=== PATIENT | female | born 1955 | race Caucasian/White ===

== ENCOUNTER 2016-12-12 14:46 | Emergency (ER) | payer BC ==
[~2016-12-12 14:46] MED LIST: AMLO2.5T PO; CITRTAB8 PO; DICL25 PO; DICL50 PO; LEFL20TA7 PO
[2016-12-12 14:49] VITALS: BP 133/91; PULSE 118; RESP 20; TEMP 102.1; O2SAT 96
[2016-12-12] MEDS ORDERED: SODIUM CHLOR 0.9% 1000 ML INJ 100 ML IV ONE (15:03)
[2016-12-12] MEDS ORDERED: SODIUM CHLOR 0.9% 1000 ML INJ 1,000 ML IV ONE ×2 (15:03)
[2016-12-12 15:13] VITALS: O2SAT 96
[2016-12-12] MEDS ORDERED: ACETAMINOPHEN 325 MG TAB PO ONE (15:15)
[2016-12-12] MEDS ORDERED: ONDANSETRON HCL 4 MG/2 ML VIAL IV PUSH ONE (15:30)
[2016-12-12 15:35] LABS: AUTOMATED NEUTROPHIL # 7.9 TH/MM3 (1.8-7.7); BASOPHIL # 0.5 TH/MM3 (0-0.2); BASOPHIL % 4.7 % (0.0-2.0); EOSINOPHIL % 0.1 % (0.0-4.0); HEMATOCRIT 36.2 % (35.0-46.0); HEMO FLAGS DIFF FINAL; LYMPH % 11.7 % (9.0-44.0); LYMPHOCYTE # 1.2 TH/MM3 (1.0-4.8); MEAN CELL VOLUME 88.6 FL (80.0-100.0); MEAN CORPUSCULAR HEMOGLOBIN 29.5 PG (27.0-34.0); MEAN CORPUSCULAR HGB CONC 33.3 % (32.0-36.0); MONO % 9.1 % (0.0-8.0); NEUT % 74.4 % (16.0-70.0); PLATELET COUNT 234 TH/MM3 (150-450); RED BLOOD COUNT 4.08 MIL/MM3 (4.00-5.30); RED CELL DISTRIBUTION WIDTH 12.1 % (11.6-17.2); WHITE BLOOD COUNT 10.6 TH/MM3 (4.0-11.0)
[2016-12-12 15:40] VITALS: BP 144/73; PULSE 114; RESP 20; O2SAT 99
[2016-12-12 15:44] LABS: CHLORIDE 100 MEQ/L (98-107); SODIUM (NA) 133 MEQ/L (136-145)
[2016-12-12] MEDS ORDERED: ZANT150T2 PO (15:47)
[2016-12-12] MEDS ORDERED: AMLO2.5T PO (15:47)
[2016-12-12] MEDS ORDERED: EMBRIL IM (15:47)
[2016-12-12] MEDS ORDERED: PROLEA SQ (15:47)
[2016-12-12] MEDS ORDERED: CETI-1 PO (15:47)
[2016-12-12] MEDS ORDERED: MONT10TA2 PO (15:47)
[2016-12-12] MEDS ORDERED: ATOR10TA15 PO (15:47)
[2016-12-12] MEDS ORDERED: CALC1TAB12 PO (15:47)
[2016-12-12] MEDS ORDERED: CARV6.25 PO (15:47)
[2016-12-12] MEDS ORDERED: LOSA100T PO (15:47)
--- NOTE | 2016-12-12 15:47 | PD ---
HPI . Flu Chief Complaint: Cold / Flu Symptoms Time Seen by Provider: 15:03 Travel History International Travel<30 days: No Contact w/Intl Traveler<30days: No Traveled to known affect area: No History of Present Illness HPI This patient presents to us with the chief complaint of flu, rule out sepsis. She states that her symptoms all started about 3 days ago with a sore throat. She has subsequently developed nasal congestion and chest congestion and fever. She is also having some nausea and vomiting. Symptoms have been getting progressively worse. She rates her throat pain as 7/10. She has not noted any modifying factors. She states that she went to see her PMD today who gave her a shot of Rocephin and sent her to an outpatient lab to have a flu swab done. The outpatient lab was unable to do the flu swab so she was subsequently seen at an urgent care center. Her flu test there was positive. Sometime in the interim, she has had a chest x-ray done at [facility]. She states that she was sent here from the urgent care center for rule out sepsis. She has not had a dose of Tylenol today. She does not yet have a prescription for Tamiflu. She states that her also has the flu and was seen at the urgent care center and given a prescription for Tamiflu. However, they were concerned that she was septic and sent her here. [facility] Past Medical History Diminished Hearing: No Hypertension: Yes Medical other: Yes (LEFT LAKHANI FRACTURE 5TH METATARSAL) Influenza Vaccination: Yes ?: Not Menopausal: Yes Past Surgical History Genitourinary Surgery: Yes (URETHRA PLASTY ) Tonsillectomy: Yes Other Surgery: Yes (BILATERAL BREAST IMPLANTS AND SINUS SURGERY ) Social History Alcohol Use: No Tobacco Use: Yes (03/29 TO 03/27 PPD) Substance Use: No Allergies-Medications (Allergen,Severity, Reaction): Coded Allergies: clarithromycin (Unverified Allergy, Severe, 12/12/16) codeine (Unverified Allergy, Severe, 12/12/16) cyclobenzaprine (Unverified Allergy, Severe, 12/12/16) povidone-iodine (Unverified Allergy, Severe, 12/12/16) ibuprofen (Verified Allergy, Intermediate, RASH, 12/12/16) latex (Verified Allergy, Intermediate, RASH, 12/12/16) amoxicillin (Verified Allergy, Unknown, TURNS TEETH BROWN, 12/12/16) clavulanic acid (Verified Allergy, Unknown, TURNS TEETH BROWN, 12/12/16) Uncoded Allergies: CIDEX (Allergy, Severe, 08/02/11) Reported Meds & Prescriptions Reported Meds & Active Scripts Active Zofran Odt (Ondansetron Odt) 4 Mg Tab 4 Mg SL Q6HR PRN Tamiflu (Oseltamivir Phosphate) 75 Mg Cap 75 Mg PO BID 5 Days Reported Doxycycline 40 Mg Cap 100 Mg PO BID Magnesium Citrate 100 Mg Tab 250 Mg PO BID PRN Probiotic (Saccharomyces Boulardii) 250 Mg Cap 250 Mg PO BID Calcium 500 +D (Calcium Carbonate-Cholecalciferol) 500-400 Mg-Unit Tab 1 Tab PO DAILY Zyrtec (Cetirizine HCl) 10 Mg Tablet 1 Tab PO HS Singulair (Montelukast Sodium) 10 Mg Tab 10 Mg PO DAILY [Prolea] Unknown Dose SQ 2X YEAR Atorvastatin (Atorvastatin Calcium) 10 Mg Tab 10 Mg PO EVERY OTHER DAY [Embril] 50 Mg IM SUNDAY Zantac (Ranitidine HCl) 150 Mg Tab 150 Mg PO BID Coreg (Carvedilol) 6.25 Mg Tab 6.25 Mg PO BID Losartan (Losartan Potassium) 100 Mg Tab 100 Mg PO DAILY Amlodipine (Amlodipine Besylate) 2.5 Mg Tab 2.5 Mg PO DAILY Review of Systems Except as stated in HPI: all other systems reviewed are Neg General / Constitutional: Positive: Fever, Chills Eyes: No: Drainage, Redness HENT: Positive: Sore Throat, Rhinitis, Congestion Respiratory: Positive: Cough Gastrointestinal: Positive: Nausea, Vomiting Physical Exam Narrative Vital Signs Date Time Temp Pulse Resp B/P (MAP) Pulse Ox O2 Delivery O2 Flow Rate FiO2 12/12/16 15:40 114 20 144/73 (96) 99 Room Air 12/12/16 15:13 96 Room Air 12/12/16 14:49 102.1 118 20 133/91 (105) 96 GENERAL: Patient is awake and alert and does not appear to be in any acute distress. SKIN: warm/dry. No rashes noted. HEAD: Normocephalic. Atraumatic. EYES: Pupils equal and round. No scleral icterus. No injection or drainage. ENT: No nasal bleeding or discharge. Mucous membranes pink and moist. NECK: Trachea midline. Full range of motion without pain. CARDIOVASCULAR: Sinus tachycardia. Heart sounds are normal. RESPIRATORY: No accessory muscle use. Clear to auscultation. Breath sounds equal bilaterally. GASTROINTESTINAL: Abdomen soft. Nontender. Bowel sounds present. Nondistended. MUSCULOSKELETAL: No obvious deformities. NEUROLOGICAL: Awake and alert. No obvious cranial nerve deficits. Motor grossly within normal limits. Normal speech. PSYCHIATRIC: Appropriate mood and affect; insight and judgment normal. Data Data Last Documented VS Vital Signs Date Time Temp Pulse Resp B/P (MAP) Pulse Ox O2 Delivery O2 Flow Rate FiO2 12/12/16 16:51 12/12/16 16:40 98.9 98 18 97 Room Air Orders Orders Complete Blood Count With Diff (12/12/16 15:03) Comprehensive Metabolic Panel (12/12/16 15:03) Lactic Acid Sepsis Protocol (12/12/16 15:03) Blood Culture (12/12/16 15:03) Ecg Monitoring (12/12/16 15:03) Iv Access Insert/Monitor (12/12/16 15:03) Oximetry (12/12/16 15:03) Sodium Chlor 0.9% 1000 Ml Inj (Ns 1000 M (12/12/16 15:03) Sodium Chlor 0.9% 1000 Ml Inj (Ns 1000 M (12/12/16 15:03) Sodium Chlor 0.9% 1000 Ml Inj (Ns 1000 M (12/12/16 15:03) Acetaminophen (Tylenol) (12/12/16 15:15) Ondansetron Inj (Zofran Inj) (12/12/16 15:30) Labs Laboratory Tests Test 12/12/16 15:22 12/12/16 15:28 White Blood Count 10.6 TH/MM3 Red Blood Count 4.08 MIL/MM3 Hemoglobin 12.1 GM/DL Hematocrit 36.2 % Mean Corpuscular Volume 88.6 FL Mean Corpuscular Hemoglobin 29.5 PG Mean Corpuscular Hemoglobin Concent 33.3 % Red Cell Distribution Width 12.1 % Platelet Count 234 TH/MM3 Mean Platelet Volume 8.9 FL Neutrophils (%) (Auto) 74.4 % Lymphocytes (%) (Auto) 11.7 % Monocytes (%) (Auto) 9.1 % Eosinophils (%) (Auto) 0.1 % Basophils (%) (Auto) 4.7 % Neutrophils # (Auto) 7.9 TH/MM3 Lymphocytes # (Auto) 1.2 TH/MM3 Monocytes # (Auto) 1.0 TH/MM3 Eosinophils # (Auto) 0.0 TH/MM3 Basophils # (Auto) 0.5 TH/MM3 CBC Comment DIFF FINAL Differential Comment Blood Urea Nitrogen 12 MG/DL Creatinine 1.10 MG/DL Random Glucose 124 MG/DL Total Protein 8.2 GM/DL Albumin 3.5 GM/DL Calcium Level 9.0 MG/DL Alkaline Phosphatase 97 U/L Aspartate Amino Transf (AST/SGOT) 27 U/L Alanine Aminotransferase (ALT/SGPT) 19 U/L Total Bilirubin 0.3 MG/DL Sodium Level 133 MEQ/L Potassium Level 4.0 MEQ/L Chloride Level 100 MEQ/L Carbon Dioxide Level 22.5 MEQ/L Anion Gap 11 MEQ/L Estimat Glomerular Filtration Rate 50 ML/MIN Lactic Acid Level 1.7 mmol/L MDM Medical Decision Making Medical Screen Exam Complete: Yes Emergency Medical Condition: Yes Differential Diagnosis Differential diagnosis of fever includes but is not limited to viral illness, strep throat, otitis media, pneumonia, sepsis, UTI Narrative Course This patient presents for rule out sepsis. She has already been diagnosed with flu today. She has not yet had Tylenol today and she has not yet been prescribed Tamiflu. CBC & BMP Diagram 12/12/16 15:22 Total Protein 8.2, Albumin 3.5, Calcium Level 9.0, Alkaline Phosphatase 97, Aspartate Amino Transf (AST/SGOT) 27, Alanine Aminotransferase (ALT/SGPT) 19, Total Bilirubin 0.3 Lactic acid is 1.7. This patient has the flu. She has a normal white blood count and a normal lactic acid level. She is stable for discharge and treatment as an outpatient. Sepsis Criteria SIRS Criteria (2 or more): Temp > 100.9 or < 96.8, Heart rate over 90 Sepsis Criteria (SIRS+source): Infect source susp/known Criteria Outcome: Meets sepsis criteria Diagnosis Primary Impression: Influenza Additional Impression: Sepsis Qualified Codes: A41.9 - Sepsis, unspecified organism Patient Instructions: General Instructions, H1N1 Influenza in Children (GEN) Additional Instructions: Drink lots of fluids. Tylenol and/or Advil as needed for fever. Medications as prescribed. Med/Other Pt SpecificInfo: Prescription(s) given Scripts Ondansetron Odt (Zofran Odt) 4 Mg Tab 4 MG SL Q6HR Y for Nausea/Vomiting, #30 TAB 0 Refills Prov: Denise Bailon MD 12/12/16 Oseltamivir (Tamiflu) 75 Mg Cap 75 MG PO BID for Mgmt Viral Infection for 5 Days, #10 CAP 0 Refills Prov: Denise Bailon MD 12/12/16 Disposition: 01 DISCHARGE HOME Condition: Stable Denise Bailon MD Dec 12, 2016 15:47
[2016-12-12 15:48] LABS: ANION GAP 11 MEQ/L (5-15); BICARBONATE 22.5 MEQ/L (21.0-32.0); BLOOD UREA NITROGEN 12 MG/DL (7-18)
[2016-12-12] MEDS ORDERED: SACC1CAP3 PO (15:49)
[2016-12-12] MEDS ORDERED: MAGN100T2 PO (15:49)
[2016-12-12] MEDS ORDERED: DOXY1CAP74 PO (15:49)
[2016-12-12 15:51] LABS: ALT (GPT) 19 U/L (10-53); AST (GOT) 27 U/L (15-37); GLOMERULAR FILTRATION RATE 50 ML/MIN (>89)
[2016-12-12 15:52] LABS: TOTAL BILIRUBIN ADULT 0.3 MG/DL (0.2-1.0)
[2016-12-12 15:54] LABS: ALKALINE PHOSPHATASE 97 U/L (45-117)
[2016-12-12] MEDS ORDERED: ZOFR4TAB3 SL (16:04)
[2016-12-12] MEDS ORDERED: OSEL75 PO (16:04)
[2016-12-12 16:40] VITALS: BP 114/54; PULSE 98; RESP 18; TEMP 98.9; O2SAT 97
[2016-12-13] MEDS ORDERED: ENBR50IN2 SQ (11:01)
== END 2016-12-12 17:45 | disposition home or self-care (01) ==
LOC: PHED 14:46
DX: J11.1 Influenza due to unidentified influenza virus with other respiratory manifestations (principal); I10 Essential (primary) hypertension; F17.200 Nicotine dependence, unspecified, uncomplicated
CPT/HCPCS: 80053; 83605; 85025; 87040; 96361; 96374; 99284; J2405; J7030

== ENCOUNTER 2017-02-07 00:27 | Observation (INO) | payer BC ==
[2017-02-07] VITALS (8 sets, daily range): BP systolic 93–144; BP diastolic 53–98; PULSE 65–80; RESP 16–20; TEMP 97–98; O2SAT 95–99
[~2017-02-07] VITALS: Ht 160 cm; Wt 72.7 kg
[~2017-02-07 00:27] MED LIST changes: +ATOR10TA15 PO; +CALC1TAB12 PO; +CARV6.25 PO; +CETI-1 PO; -CITRTAB8 PO; -DICL25 PO; -DICL50 PO; +DOXY1CAP74 PO; +ENBR50IN2 SQ; -LEFL20TA7 PO; +LOSA100T PO; +MAGN100T2 PO; +MONT10TA2 PO; +OSEL75 PO; +PROLEA SQ; +SACC1CAP3 PO; +ZANT150T2 PO; +ZOFR4TAB3 SL
[2017-02-07] MEDS ORDERED: OXYC1TAB36 PO (01:21)
[2017-02-07] MEDS ORDERED: HYDR-3133 PO (01:21)
[2017-02-07] MEDS ORDERED: KETOROLAC TROMETHAMINE 60 MG/2 ML (IM) VIAL IM ONE (01:45)
--- NOTE | 2017-02-07 02:14 | RADRPT ---
EXAM DATE/TIME: 02/07/2017 01:49 [facility] COMPARISON: No previous studies available for comparison. INDICATIONS : Left side rib pain after fall. MEDICAL HISTORY : None. SURGICAL HISTORY : None. ENCOUNTER: Initial ACUITY: 1 day PAIN SCORE: 10/10 LOCATION: Left chest FINDINGS: Multiple views of the left ribs were performed. There are fractures from the fifth through eighth rib s. No destructive lesions or areas of periosteal thickening are seen. Expiratory view of the chest is negative for pneumothorax. The mediastinal structures are midline. CONCLUSION: Numerous left-sided rib fractures without evidence of pneumothorax or pleural effusion. Rob Wilkes MD on February 07, 2017 at 2:11 Board Certified Radiologist. This report was verified electronically.
[2017-02-07] MEDS ORDERED: MORPHINE SULFATE 4 MG/ML INJ IV PUSH ONE (02:30)
--- NOTE | 2017-02-07 02:52 | PD ---
HPI Chief Complaint: Fall Time Seen by Provider: 01:28 Travel History International Travel<30 days: No Contact w/Intl Traveler<30days: No Traveled to known affect area: No History of Present Illness HPI Patient is a 61-year-old female who recently had a surgery for a nonunion [place] fracture of her left foot today she was cleaning out the garage and she was getting out of her car. She was getting onto her knee scooter which she uses since the surgery. She fell sideways into the workbench in the garage slamming her left side into the bench and has severe pain in the rib area. In the ER she is holding the area she seems to be splinting not breathing fully into that area otherwise her appearance is normal she did not take anything for the pain. The injury happened just prior to arrival. PFSH Past Medical History Anemia: Yes (BORDERLINE) High Cholesterol: Yes Diminished Hearing: No Gastrointestinal Disorders: Yes (EGD AND COLONOSCOPY WITH POLYPECTOMY) GERD: Yes Herniated Disk: Yes (C5-C6, REPAIRED) Hypertension: Yes Immune Disorder: Yes (PSORIATIC ARTHRITIS) Insomnia: Yes Immunizations Current: Yes (WHOOPING COUGH: 2014) Migraines: Yes Pneumonia: Yes Tetanus Vaccination: < 5 Years Influenza Vaccination: Yes ?: Not Menopausal: Yes : 2 Miscarriage: 1 : 1 Past Surgical History Genitourinary Surgery: Yes (URETHRA PLASTY ) Tonsillectomy: Yes Other Surgery: Yes (BILATERAL BREAST IMPLANTS AND SINUS SURGERY X2) Social History Alcohol Use: Yes ("GLASS OF WINE ONCE IN AWHILE") Tobacco Use: No (QUIT AGE 55) Substance Use: No Allergies-Medications (Allergen,Severity, Reaction): Coded Allergies: clarithromycin (Unverified Allergy, Severe, 02/07/17) codeine (Unverified Allergy, Severe, 02/07/17) cyclobenzaprine (Unverified Allergy, Severe, 02/07/17) povidone-iodine (Unverified Allergy, Severe, 02/07/17) ibuprofen (Verified Allergy, Intermediate, RASH, 02/07/17) latex (Verified Allergy, Intermediate, RASH, 02/07/17) amoxicillin (Verified Allergy, Unknown, TURNS TEETH BROWN, 02/07/17) clavulanic acid (Verified Allergy, Unknown, TURNS TEETH BROWN, 11/15/17) Uncoded Allergies: CIDEX (Allergy, Severe, 08/02/11) Reported Meds & Prescriptions Reported Meds & Active Scripts Active Reported Oxycodone-Acetaminophen 10-325 mg Tab 1 Tab PO Q4-6H Hydroxyzine HCl 25 Mg Tab 25 Mg PO QID PRN Enbrel PF Inj (Etanercept) 50 mg/ml Syr 50 Mg SQ SUNDAY Magnesium Citrate 100 Mg Tab 250 Mg PO BID PRN Probiotic (Saccharomyces Boulardii) 250 Mg Cap 250 Mg PO BID Calcium 500 +D (Calcium Carbonate-Cholecalciferol) 500-400 Mg-Unit Tab 1 Tab PO DAILY Zyrtec (Cetirizine HCl) 10 Mg Tablet 1 Tab PO HS Singulair (Montelukast Sodium) 10 Mg Tab 10 Mg PO DAILY [Prolea] Unknown Dose SQ 2X YEAR Atorvastatin (Atorvastatin Calcium) 10 Mg Tab 10 Mg PO EVERY OTHER DAY Zantac (Ranitidine HCl) 150 Mg Tab 150 Mg PO BID Coreg (Carvedilol) 6.25 Mg Tab 6.25 Mg PO BID Losartan (Losartan Potassium) 100 Mg Tab 100 Mg PO DAILY Amlodipine (Amlodipine Besylate) 2.5 Mg Tab 2.5 Mg PO DAILY Review of Systems Except as stated in HPI: all other systems reviewed are Neg Musculoskeletal: Positive: Myalgias, Arthralgias, Pain (to her left rib cage around ribs [id number]) Physical Exam Narrative GENERAL: Appears in pain holding her left rib cage SKIN: Warm and dry. HEAD: Atraumatic. Normocephalic. EYES: Pupils equal and round. No scleral icterus. No injection or drainage. ENT: No nasal bleeding or discharge. Mucous membranes pink and moist. NECK: Trachea midline. No JVD. CARDIOVASCULAR: Regular rate and rhythm. Tenderness to her lateral left rib cage around ribs 6, 7,,8,9 RESPIRATORY: No accessory muscle use. Clear to auscultation. Breath sounds equal bilaterally. Pain with deep inspiration GASTROINTESTINAL: Abdomen soft, non-tender, nondistended. Hepatic and splenic margins not palpable. MUSCULOSKELETAL: Extremities left foot is in a large Raymundo bandage Pal[place] dressing to postoperative's . NEUROLOGICAL: Awake and alert. No obvious cranial nerve deficits. Motor grossly within normal limits. Five out of 5 muscle strength in the arms and legs. Normal speech. PSYCHIATRIC: Appropriate mood and affect; insight and judgment normal. Data Data Last Documented VS Vital Signs Date Time Temp Pulse Resp B/P (MAP) Pulse Ox O2 Delivery O2 Flow Rate FiO2 02/07/17 02:30 68 16 115/68 (84) 98 Room Air 02/07/17 01:10 97.8 Orders Orders Ribs, Uni (W/Exp Cxr-Min 3vw) (02/07/17 ) Ketorolac Inj (Toradol Inj) (02/07/17 01:45) Morphine Inj (Morphine Inj) (02/07/17 02:30) Place In Observation (02/07/17 ) Vital Signs (Adult) Q4H (02/07/17 03:02) Activity Oob With Assistance (02/07/17 03:02) Bedside Glucose MILO.CSUGAR (02/07/17 03:02) Diet Regular Basic (02/07/17 Breakfast) Sodium Chloride 0.9% Flush (Ns Flush) (02/07/17 03:15) Sodium Chloride 0.9% Flush (Ns Flush) (02/07/17 09:00) Acetaminophen (Tylenol) (02/07/17 03:15) Ondansetron Inj (Zofran Inj) (02/07/17 03:15) Pt Request For Service (02/07/17 03:02) Heparin Inj (Heparin Inj) (02/07/17 06:00) Naloxone Inj (Narcan Inj) (02/07/17 03:15) Docusate Sodium-Senna (Arlin-Colace) (02/07/17 09:00) Magnesium Hydroxide Liq (Milk Of Magnesi (02/07/17 03:15) Sennosides (Senokot) (02/07/17 03:15) Bisacodyl Supp (Dulcolax Supp) (02/07/17 03:15) Lactulose Liq (Lactulose Liq) (02/07/17 03:15) ^ Pulmonary Toilets (02/07/17 03:02) Resp Incentive Spirometry (02/07/17 ) Oxycodone-Acetamin 5-325 Mg (Percocet (02/07/17 03:15) Amlodipine (Norvasc) (02/07/17 09:00) Atorvastatin (Lipitor) (02/07/17 09:00) Carvedilol (Coreg) (02/07/17 09:00) Hydroxyzine Hcl (Atarax) (02/07/17 03:15) Losartan (Cozaar) (02/07/17 09:00) Admit Order (Ed Use Only) (02/07/17 03:06) MDM Medical Decision Making Medical Screen Exam Complete: Yes Emergency Medical Condition: Yes Differential Diagnosis rib contusion vs rib fractures vs pulmonary contusion Narrative Course Xray shows left lateral rib fractures 3 to 4 fractures needs pulmonary toiletry to prevent PNA and will admit for pain control and rehab, as she also is only few days post op foot surgery Diagnosis Primary Impression: Multiple rib fractures Qualified Codes: S22.42XA - Multiple fractures of ribs, left side, initial encounter for closed fracture Admitting Information Admitting Physician Requests: it Ganesh Rosas MD Feb 07, 2017 02:52
[2017-02-07] MEDS ORDERED: oxyCODONE/ACETAMINOPHEN 5 MG/325 MG TAB PO PRN (03:15)
[2017-02-07] MEDS ORDERED: ACETAMINOPHEN 325 MG TAB PO PRN (03:15)
[2017-02-07] MEDS ORDERED: SENNOSIDES 8.6 MG TAB PO PRN (03:15)
[2017-02-07] MEDS ORDERED: PILL SPLITTER OTHER PRN (03:15)
[2017-02-07] MEDS ORDERED: BISACODYL 10 MG SUPP RECTAL PRN (03:15)
[2017-02-07] MEDS ORDERED: LACTULOSE SYRUP 20 GM/30 ML CUP PO PRN (03:15)
[2017-02-07] MEDS ORDERED: SODIUM CHLORIDE 0.9% FLUSH 10 ML FLUSH IV FLUSH PRN (03:15)
[2017-02-07] MEDS ORDERED: MAGNESIUM HYDROXIDE SUSP 30 ML CUP PO PRN (03:15)
[2017-02-07] MEDS ORDERED: NALOXONE HCL 0.4 MG/ML AMP IV PUSH PRN (03:15)
[2017-02-07] MEDS ORDERED: traMADol HCL 50 MG TAB PO PRN (05:30)
[2017-02-07] MEDS: HEPARIN SODIUM - SQ 10,000 UNITS/ML VIAL SQ SCH ×3 (06:02→20:41)
[2017-02-07] MEDS: CARVEDILOL 6.25 MG TAB PO SCH ×2 (09:05→20:41)
[2017-02-07] MEDS: ATORVASTATIN 10 MG TAB PO SCH (09:05)
[2017-02-07] MEDS: amLODIPine BESYLATE 5 MG TAB PO SCH (09:05)
[2017-02-07] MEDS: DOCUSATE SODIUM 50 MG/SENNA 8.6 MG TAB PO SCH ×2 (09:06→20:41)
[2017-02-07] MEDS: LOSARTAN 50 MG TAB PO SCH (09:06)
[2017-02-07] MEDS: SODIUM CHLORIDE 0.9% FLUSH 10 ML FLUSH IV FLUSH SCH ×2 (09:06→20:42)
[2017-02-07] MEDS ORDERED: MORPHINE SULFATE 2 MG/ML INJ IV PUSH ONE (09:30)
[2017-02-07] MEDS ORDERED: oxyCODONE/ACETAMINOPHEN 7.5 MG/325 MG TAB PO PRN (14:00)
--- NOTE | 2017-02-07 14:07 | HHI.HP ---
[facility] Service [facility] Primary Care Physician Non-Staff Admission Diagnosis multiple rib fractures Diagnoses: Travel History International Travel<30 Days: No Contact w/Intl Traveler <30 Da: No Traveled to Known Affected Are: No History of Present Illness Patient is a 61-year-old female with past medical history of hypertension, hyperlipidemia, psoriatic arthritis came in complaining of left-sided rib pain status post fall. She states that she was in her garage trying to get out of her car when she misses her scooter with her left knee, lost balance and landed on her workbench on her left side. She states she fell along the edge of the workbench. She experienced excruciating pain on her left ribs. Her pain was a 10 out of 10 at that time. Last night when she came in, she received Toradol and that helped ease her pain a lot. Currently her pain is a 7 out of 10. 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 She states that oxycodone with Tylenol with Vistaril works well for her. She denied any chest pain, shortness of breath, lightheadedness or dizziness prior to the episode. Currently she feels pain, other than that she has no other complaints. She has been doing her incentive spirometer every hour as instructed. No cough, runny nose, sore throat. Review of Systems Except as stated in HPI: all other systems reviewed are Neg Past Family Social History Past Medical History hypertension, hyperlipidemia, psoriatic arthritis Past Surgical History Left foot surgery, C5/C6 anterior cervical fusion, bilateral breast augmentations, 2 sinus surgeries Reported Medications Reported Meds & Active Scripts Active Reported Oxycodone-Acetaminophen 10-325 mg Tab 1 Tab PO Q4-6H Hydroxyzine HCl 25 Mg Tab 25 Mg PO QID PRN Enbrel PF Inj (Etanercept) 50 mg/ml Syr 50 Mg SQ SUNDAY Magnesium Citrate 100 Mg Tab 250 Mg PO BID PRN Probiotic (Saccharomyces Boulardii) 250 Mg Cap 250 Mg PO BID Calcium 500 +D (Calcium Carbonate-Cholecalciferol) 500-400 Mg-Unit Tab 1 Tab PO DAILY Zyrtec (Cetirizine HCl) 10 Mg Tablet 1 Tab PO HS Singulair (Montelukast Sodium) 10 Mg Tab 10 Mg PO DAILY [Prolea] Unknown Dose SQ 2X YEAR Atorvastatin (Atorvastatin Calcium) 10 Mg Tab 10 Mg PO EVERY OTHER DAY Zantac (Ranitidine HCl) 150 Mg Tab 150 Mg PO BID Coreg (Carvedilol) 6.25 Mg Tab 6.25 Mg PO BID Losartan (Losartan Potassium) 100 Mg Tab 100 Mg PO DAILY Amlodipine (Amlodipine Besylate) 2.5 Mg Tab 2.5 Mg PO DAILY Allergies: Coded Allergies: clarithromycin (Unverified Allergy, Severe, 02/07/17) codeine (Unverified Allergy, Severe, 02/07/17) cyclobenzaprine (Unverified Allergy, Severe, 02/07/17) povidone-iodine (Unverified Allergy, Severe, 02/07/17) ibuprofen (Verified Allergy, Intermediate, RASH, 02/07/17) latex (Verified Allergy, Intermediate, RASH, 02/07/17) amoxicillin (Verified Allergy, Unknown, TURNS TEETH BROWN, 02/07/17) clavulanic acid (Verified Allergy, Unknown, TURNS TEETH BROWN, 02/07/17) Uncoded Allergies: CIDEX (Allergy, Severe, 08/02/11) Family History Mother: CVA, diabetes, [place] with stents Father: high blood pressure, [place] with stents Social History Quit smoking 5 and 1/2 years ago, used to smoke less than a pack a day for 22 years Occasional alcohol use Denies illegal drug use Physical Exam Vital Signs Vital Signs Date Time Temp Pulse Resp B/P (MAP) Pulse Ox O2 Delivery O2 Flow Rate FiO2 02/07/17 08:00 98.0 70 18 144/77 (99) 98 02/07/17 06:44 20 02/07/17 04:18 02/07/17 04:03 97.2 65 16 110/64 (79) 98 02/07/17 04:00 98.0 76 20 138/98 (111) 99 02/07/17 02:30 68 16 115/68 (84) 98 Room Air 02/07/17 01:10 97.8 71 20 115/53 (73) 95 Room Air Physical Exam GENERAL: pleasant female, in pain with movement. SKIN: mild ecchymosis noted on the left back, tender to palpation. HEAD: Atraumatic. Normocephalic. No temporal or scalp tenderness. EYES: Pupils equal round and reactive. Extraocular motions intact. No scleral icterus. No injection or drainage. ENT: Nose without drainage. Throat without erythema, tonsillar hypertrophy or exudate. Uvula midline. Airway patent. NECK: Trachea midline. CARDIOVASCULAR: Regular rate and rhythm without murmurs RESPIRATORY: Clear to auscultation. Breath sounds equal bilaterally. No wheezes GASTROINTESTINAL: Abdomen soft, non-tender, nondistended. No guarding. MUSCULOSKELETAL: Extremities without edema. dressing over the left leg, d/c/i. NEUROLOGICAL: Awake and alert. Cranial nerves II through XII intact. Difficulty moving around due left leg sx, able to move her left arm however does cause some rib pain. Normal speech. Imaging Last Impressions Ribs X-Ray 02/07/17 0000 Signed Impressions: Service Date/Time: Tuesday, February 07, 2017 01:49 - CONCLUSION: Numerous left-sided rib fractures without evidence of pneumothorax or pleural effusion. MD Toan Christian VTE Risk Assessment Caprini VTE Risk Assessment: Mod/High Risk (score >= 2) Caprini Risk Assessment Model Point Value = 1 Point Value = 2 Point Value = 3 Point Value = 5 Age 41-60 Minor surgery BMI > 25 kg/m2 Swollen legs Varicose veins or History of unexplained or recurrent spontaneous Oral contraceptives or hormone replacement Sepsis (< 1 month) Serious lung disease, including pneumonia (< 1 month) Abnormal pulmonary function Acute myocardial infarction Congestive heart failure (< 1 month) History of inflammatory bowel disease Medical patient at bed rest Age 61-74 Arthroscopic surgery Major open surgery (> 45 min) Laparoscopic surgery (> 45 min) Malignancy Confined to bed (> 72 hours) Immobilizing plaster cast Central venous access Age >= 75 History of VTE Family history of VTE Factor V Leiden Prothrombin [id number] Lupus anticoagulant Anticardiolipin antibodies Elevated serum homocysteine Heparin-induced thrombocytopenia Other congenital or acquired thrombophilia Stroke (< 1 month) Elective arthroplasty Hip, pelvis, or leg fracture Acute spinal cord injury (< 1 month) Prophylaxis Regimen Total Risk Factor Score Risk Level Prophylaxis Regimen 0-1 Low Early ambulation 2 Moderate Order ONE of the following: *Sequential Compression Device (SCD) *Heparin 5000 units SQ BID 3-4 Higher Order ONE of the following medications: *Heparin 5000 units SQ TID *Enoxaparin/Lovenox 40 mg SQ daily (WT < 150 kg, CrCl > 30 mL/min) *Enoxaparin/Lovenox 30 mg SQ daily (WT < 150 kg, CrCl > 10-29 mL/min) *Enoxaparin/Lovenox 30 mg SQ BID (WT < 150 kg, CrCl > 30 mL/min) AND/OR *Sequential Compression Device (SCD) 5 or more Highest Order ONE of the following medications: *Heparin 5000 units SQ TID (Preferred with Epidurals) *Enoxaparin/Lovenox 40 mg SQ daily (WT < 150 kg, CrCl > 30 mL/min) *Enoxaparin/Lovenox 30 mg SQ daily (WT < 150 kg, CrCl > 10-29 mL/min) *Enoxaparin/Lovenox 30 mg SQ BID (WT < 150 kg, CrCl > 30 mL/min) AND *Sequential Compression Device (SCD) Assessment and Plan Assessment and Plan Rib fractures/pain: multiple left sided rib fx (5-8) noted on chest x-ray s/p fall. Pain control w IV toradol prn breakthrough and oxicodone/acetaminophen as needed. Vistaril prn n/v. Encourage use of IS q1hr while awake, which she has been doing. bowel regimen to prevent opiate induced constipation w jose-colace/ miralax. Repeat chest x-ray in AM. PT did evaluate the patient however she doesn 't have her scooter w her, therefore will need re-eval tomorrow for d/c planning. Hypertension: controlled now, home med resumed, vasotec prn BP>160/90 Hyperlipidemia: home med resumed Psoriatic arthritis: stable. Resume home med as outpatient. Code Status full Discussed Condition With patient and Nurys Gillespie MD Feb 07, 2017 14:07
[2017-02-07] MEDS ORDERED: ENALAPRILAT 1.25 MG/ML VIAL IV PUSH PRN (14:15)
[2017-02-07] MEDS: hydrOXYzine HCL 25 MG TAB PO PRN (14:59)
[2017-02-07] MEDS: oxyCODONE/ACETAMINOPHEN 10 MG/325 MG TAB PO PRN ×2 (14:59→19:34)
[2017-02-07] MEDS: ONDANSETRON HCL 4 MG/2 ML VIAL IVP PRN (19:41)
[2017-02-08] VITALS: BP 121/71; PULSE 78; RESP 18; TEMP 96.7; O2SAT 96
[2017-02-08] MEDS: hydrOXYzine HCL 25 MG TAB PO PRN (00:47)
[2017-02-08] MEDS: oxyCODONE/ACETAMINOPHEN 10 MG/325 MG TAB PO PRN ×6 (00:47→22:10)
[2017-02-08 04:00] VITALS: BP 104/76; PULSE 86; RESP 16; TEMP 97.8; O2SAT 97
[2017-02-08] MEDS: HEPARIN SODIUM - SQ 10,000 UNITS/ML VIAL SQ SCH ×3 (05:10→22:10)
[2017-02-08] MEDS: ONDANSETRON HCL 4 MG/2 ML VIAL IVP PRN ×2 (05:15→22:11)
[2017-02-08] MEDS: amLODIPine BESYLATE 5 MG TAB PO SCH (08:13)
[2017-02-08] MEDS: DOCUSATE SODIUM 50 MG/SENNA 8.6 MG TAB PO SCH ×2 (08:13→22:10)
[2017-02-08] MEDS: LOSARTAN 50 MG TAB PO SCH (08:13)
[2017-02-08] MEDS: POLYETHYLENE GLYCOL 17 GM PKG PO SCH (08:14)
[2017-02-08] MEDS: SODIUM CHLORIDE 0.9% FLUSH 10 ML FLUSH IV FLUSH SCH ×2 (08:14→22:11)
[2017-02-08] MEDS: CARVEDILOL 6.25 MG TAB PO SCH ×3 (08:14→22:12)
[2017-02-08 08:19] VITALS: BP 121/74; PULSE 97; RESP 18; O2SAT 91
[2017-02-08] MEDS: KETOROLAC TROMETHAMINE 30 MG/ML (IVP) VIAL IV PUSH PRN ×3 (08:28→23:26)
--- NOTE | 2017-02-08 09:47 | RADRPT ---
EXAM DATE/TIME: 02/08/2017 08:46 [facility] COMPARISON: No previous studies available for comparison. INDICATIONS : Fall, left side rib pain. MEDICAL HISTORY : None. SURGICAL HISTORY : None. ENCOUNTER: Subsequent ACUITY: 2 days PAIN SCORE: 7/10 LOCATION: Left chest FINDINGS: PA and lateral views of the chest reveal a left lower lobe infiltrate obscuring the left hemidiaphrag m. Right lung is clear. Tiny left effusion. Heart is normal in size. Cervical spinal fusion plate not ed. CONCLUSION: Left lower lobe infiltrate with tiny left effusion. Arcadio Ch Jr., MD on February 08, 2017 at 9:45 Board Certified Radiologist. This report was verified electronically.
--- NOTE | 2017-02-08 11:35 | HHI.PR ---
Subjective Remarks Patient reports she is feeling better this morning after receiving Toradol. Oxygen level dropped to the high 80s but quickly rebounded after she took some deep breaths. Her pain is better controlled this morning. She has developed a tiny infiltrate and effusion on the left side. Objective Vitals Vital Signs Date Time Temp Pulse Resp B/P (MAP) Pulse Ox O2 Delivery O2 Flow Rate FiO2 02/08/17 08:19 97 18 121/74 (90) 91 02/08/17 06:16 18 02/08/17 04:00 97.8 86 16 104/76 (85) 97 02/08/17 00:00 96.7 78 18 121/71 (88) 96 02/07/17 20:00 97.0 76 16 93/58 (70) 97 02/07/17 16:00 98.0 80 18 115/60 (78) 96 02/07/17 12:00 98.0 80 18 110/58 (75) 98 I/O 02/07/17 02/07/17 02/07/17 02/08/17 02/08/17 02/08/17 07:00 15:00 23:00 07:00 15:00 23:00 Intake Total 1444 ml 480 ml Output Total 1 ml Balance 1443 ml 480 ml Intake Oral 1440 ml 480 ml IV Total 4 ml Output Stool Total 1 ml # Voids 1 4 2 # Bowel Movements 0 0 Imaging Last Impressions Chest X-Ray 02/08/17 0000 Signed Impressions: Service Date/Time: January 08:46 - CONCLUSION: Left lower lobe infiltrate with tiny left effusion. Arcadio Ch Jr., MD Ribs X-Ray 02/07/17 0000 Signed Impressions: Service Date/Time: Tuesday, February 07, 2017 01:49 - CONCLUSION: Numerous left-sided rib fractures without evidence of pneumothorax or pleural effusion. Rob Wilkes MD Objective Remarks GENERAL: This is a well-nourished, well-developed patient, in no apparent distress. CARDIOVASCULAR: Normal rate and regular rhythm without murmurs, gallops, or rubs. RESPIRATORY: Respiratory effort somewhat limited due to pain. Breath sounds equal and clear to auscultation bilaterally. Slightly diminished on the left base. GASTROINTESTINAL: Abdomen soft, non-tender, non-distended. Normal active bowel sounds MUSCULOSKELETAL: Tender to palpation along the left ribs. Extremities without cyanosis, or edema. NEURO: Alert & Oriented x4 to person, place, time, situation. Moves all ext x4 PSYCH: Appropriate mood and affect. A/P Problem List: (1) Atelectasis ICD Code: J98.11 - Atelectasis (2) Multiple rib fractures ICD Code: S22.49XA - Multiple fractures of ribs, unspecified side, initial encounter for closed fracture Status: Acute Assessment and Plan 61-year-old female admitted with multiple rib fractures, have since developed a tiny left pleural effusion and infiltrate. Rib fractures/pain: multiple left sided rib fx (5-8) noted on chest x-ray s/p fall. Pain control w IV toradol prn breakthrough and oxicodone/acetaminophen as needed. Vistaril prn n/v. Encourage use of IS q1hr while awake. bowel regimen to prevent opiate induced constipation w jose-colace/miralax. - Pain is better controlled today. Continue to monitor and ensure she will be able to manage with oral pain medication. Tiny left pleural effusion and infiltrate: Secondary to above. Brief episode of hypoxemia when pain is not controlled. Advised the patient to use incentive spirometer. Pain control as above Hypertension: Continue home medications, vasotec prn BP>160/90 Hyperlipidemia: home med resumed Psoriatic arthritis: stable. Resume home med as outpatient. Discharge Planning Probable discharge in the morning if pain is controlled on oral medications Problem Qualifiers (1) Multiple rib fractures: Qualified Codes: S22.42XA - Multiple fractures of ribs, left side, initial encounter for closed fracture Prabhu Man MD Feb 08, 2017 11:35
[2017-02-08] MEDS: FAMOTIDINE 20 MG TAB PO SCH ×2 (11:54→22:09)
[2017-02-08 12:00] VITALS: BP 112/53; PULSE 70; RESP 18; TEMP 97.1; O2SAT 95
[2017-02-08 16:00] VITALS: BP 103/57; PULSE 80; RESP 18; TEMP 97.2; O2SAT 96
[2017-02-08 20:00] VITALS: BP 101/52; PULSE 76; RESP 16; TEMP 97; O2SAT 95
[2017-02-09] VITALS: BP 92/50; PULSE 77; RESP 18; TEMP 97.6; O2SAT 95
[2017-02-09] MEDS: HEPARIN SODIUM - SQ 10,000 UNITS/ML VIAL SQ SCH ×2 (05:35→14:18)
[2017-02-09] MEDS: KETOROLAC TROMETHAMINE 30 MG/ML (IVP) VIAL IV PUSH PRN ×2 (05:35→12:02)
[2017-02-09 08:00] VITALS: BP 137/71; PULSE 82; RESP 18; TEMP 98.1; O2SAT 99
[2017-02-09] MEDS: POLYETHYLENE GLYCOL 17 GM PKG PO SCH (09:00)
[2017-02-09] MEDS: DOCUSATE SODIUM 50 MG/SENNA 8.6 MG TAB PO SCH (09:23)
[2017-02-09] MEDS: ATORVASTATIN 10 MG TAB PO SCH (09:23)
[2017-02-09] MEDS: ONDANSETRON HCL 4 MG/2 ML VIAL IVP PRN (09:23)
[2017-02-09] MEDS: oxyCODONE/ACETAMINOPHEN 10 MG/325 MG TAB PO PRN (09:23)
[2017-02-09] MEDS: CARVEDILOL 6.25 MG TAB PO SCH (09:23)
[2017-02-09] MEDS: amLODIPine BESYLATE 5 MG TAB PO SCH (09:23)
[2017-02-09] MEDS: SODIUM CHLORIDE 0.9% FLUSH 10 ML FLUSH IV FLUSH SCH (09:24)
[2017-02-09] MEDS: FAMOTIDINE 20 MG TAB PO SCH (09:24)
[2017-02-09] MEDS: LOSARTAN 50 MG TAB PO SCH (09:24)
[2017-02-09 11:55] LABS: POTASSIUM 4.7 MEQ/L (3.5-5.1)
[2017-02-09 11:58] LABS: BICARBONATE 25.6 MEQ/L (21.0-32.0)
[2017-02-09 12:00] VITALS: BP 110/68; PULSE 74; RESP 18; TEMP 97.2; O2SAT 96
[2017-02-09] MEDS ORDERED: OXYC15TA PO (14:10)
--- NOTE | 2017-02-09 14:12 | HHI.DCPOC ---
Discharge Care Plan Diagnosis: (1) Multiple rib fractures (2) Atelectasis Goals to Promote Your Health * To prevent worsening of your condition and complications * To maintain your health at the optimal level Directions to Meet Your Goals Take your medications as prescribed Follow your dietary instruction Follow activity as directed Keep your appointments as scheduled Take your immunizations and boosters as scheduled If your symptoms worsen call your PCP, if no PCP go to Urgent Care Center or Emergency Room Smoking is Dangerous to Your Health. Avoid second hand smoke Call the 24-hour hour crisis hotline for domestic abuse at Prabhu Man MD Feb 09, 2017 14:11
--- NOTE | 2017-02-09 14:18 | HHI.DS ---
Discharge Summary Admission Date Feb 07, 2017 at 03:07 Discharge Date: Feb 09, 2017 Admitting Diagnosis multiple rib fractures (1) Atelectasis ICD Code: J98.11 - Atelectasis (2) Multiple rib fractures ICD Code: S22.49XA - Multiple fractures of ribs, unspecified side, initial encounter for closed fracture Status: Acute Procedures None Brief History - From Admission HPI from the admitting physician Patient is a 61-year-old female with past medical history of hypertension, hyperlipidemia, psoriatic arthritis came in complaining of left-sided rib pain status post fall. She states that she was in her garage trying to get out of her car when she misses her scooter with her left knee, lost balance and landed on her workbench on her left side. She states she fell along the edge of the workbench. She experienced excruciating pain on her left ribs. Her pain was a 10 out of 10 at that time. Last night when she came in, she received Toradol and that helped ease her pain a lot. Currently her pain is a 7 out of 10. 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 She states that oxycodone with Tylenol with Vistaril works well for her. She denied any chest pain, shortness of breath, lightheadedness or dizziness prior to the episode. Currently she feels pain, other than that she has no other complaints. She has been doing her incentive spirometer every hour as instructed. No cough, runny nose, sore throat. CBC/BMP: 02/09/17 1100 Significant Findings Laboratory Tests Test 02/09/17 11:00 Blood Urea Nitrogen 29 MG/DL (7-18) Creatinine 1.30 MG/DL (0.50-1.00) Sodium Level 135 MEQ/L (136-145) Estimat Glomerular Filtration Rate 42 ML/MIN (>89) Imaging Last Impressions Chest X-Ray 02/08/17 0000 Signed Impressions: Service Date/Time: January 08:46 - CONCLUSION: Left lower lobe infiltrate with tiny left effusion. Arcadio Ch Jr., MD Ribs X-Ray 02/07/17 0000 Signed Impressions: Service Date/Time: Tuesday, February 07, 2017 01:49 - CONCLUSION: Numerous left-sided rib fractures without evidence of pneumothorax or pleural effusion. Rob Wilkes MD PE at Discharge GENERAL: This is a well-nourished, well-developed patient, in no apparent distress. CARDIOVASCULAR: Normal rate and regular rhythm without murmurs, gallops, or rubs. RESPIRATORY: Respiratory effort somewhat limited due to pain. Breath sounds equal and clear to auscultation bilaterally. Slightly diminished on the left base. GASTROINTESTINAL: Abdomen soft, non-tender, non-distended. Normal active bowel sounds MUSCULOSKELETAL: Tender to palpation along the left ribs. Extremities without cyanosis, or edema. NEURO: Alert & Oriented x4 to person, place, time, situation. Moves all ext x4 PSYCH: Appropriate mood and affect. Pt update on day of discharge Patient reports her pain is better. Only had Percocet once today. She has been using Toradol. After extensive discussion with the patient. I advised discontinuing all NSAIDS due to her renal insufficiency. She believes she will be able to nature at home with a slightly higher dose of Percocet. Hospital Course 61-year-old female admitted with multiple rib fractures after mechanical fall. Patient was admitted for pain control. She had a tiny left effusion and infiltrate most likely related to atelectasis. She did not develop any cough or fevers or any other symptoms of pneumonia. Pain initially difficult to control but she had relief with IV Toradol. Patient also has what appear to be chronic renal insufficiency therefore Toradol was discontinued. She is discharged on oxycodone 15 mg every 4 hours as needed. The patient is strongly advised to continue to use incentive spirometer at least every hour while awake. Her expressed concern about her left foot that is postop. An x- ray was taken which did not show any acute abnormalities. Postoperative changes noted. Other conditions treated include Hypertension: Continue home medications Hyperlipidemia: home med resumed Psoriatic arthritis: stable. Resume home med as outpatient. Pt Condition on Discharge: Good Discharge Disposition: Discharge Home Discharge Time: <= 30 minutes Discharge Instructions DIET: Follow Instructions for: Heart Healthy Diet Activities you can perform: Regular-No Restrictions Follow up Referrals: PCP Follow-up - 2 Weeks New Medications: Oxycodone (Oxycodone) 15 Mg Tab 15 MG PO Q4HR for Pain Management, #30 TAB 0 Refills Continued Medications: Amlodipine (Amlodipine) 2.5 Mg Tab 2.5 MG PO DAILY for Blood Pressure Management, #30 TAB 0 Refills Atorvastatin (Atorvastatin) 10 Mg Tab 10 MG PO EVERY OTHER DAY for Cholesterol Management, #30 TAB 0 Refills Calcium Carbonate-Cholecalciferol (Calcium 500 +D) 500-400 Mg-Unit Tab 1 TAB PO DAILY for Calcium Supplement, TAB 0 Refills Carvedilol (Coreg) 6.25 Mg Tab 6.25 MG PO BID, #60 TAB 0 Refills Cetirizine HCl (Zyrtec) 10 Mg Tablet 1 TAB PO HS Etanercept PF Inj (Enbrel PF Inj) 50 mg/ml Syr 50 MG SQ SUNDAY, #4 SYRINGE 0 Refills Hydroxyzine HCl (Hydroxyzine HCl) 25 Mg Tab 25 MG PO QID PRN for NAUSEA WITH PAIN MED, TAB 0 Refills Losartan (Losartan) 100 Mg Tab 100 MG PO DAILY for Blood Pressure Management, #30 TAB 0 Refills Magnesium Citrate (Magnesium Citrate) 100 Mg Tab 250 MG PO BID PRN for CONSTIPATION, TAB 0 Refills Montelukast (Singulair) 10 Mg Tab 10 MG PO DAILY, #30 TAB 0 Refills Ranitidine (Zantac) 150 Mg Tab 150 MG PO BID for Reduce Stomach Acid, #60 TAB 0 Refills Saccharomyces Boulardii (Probiotic) 250 Mg Cap 250 MG PO BID for Nutritional Supplement, CAP 0 Refills [Prolea] () Unknown Dose SQ 2X YEAR Discontinued Medications: Oxycodone-Acetaminophen (Oxycodone-Acetaminophen) 10-325 mg Tab 1 TAB PO Q4-6H for Pain Management, TAB 0 Refills Prabhu Man MD Feb 09, 2017 14:18
--- NOTE | 2017-02-09 14:28 | RADRPT ---
EXAM DATE/TIME: 02/09/2017 14:09 [facility] COMPARISON: No previous studies available for comparison. INDICATIONS : Fall 3 days ago, post op left foot x 2 weeks. MEDICAL HISTORY : None. SURGICAL HISTORY : left foot surgery 2 weeks ago ENCOUNTER: Subsequent ACUITY: 3 days PAIN SCORE: 1/10 LOCATION: Left foot FINDINGS: AP, lateral and oblique views of the left foot were obtained. The final bony detail is obscured by ov erlying casting material. There is a surgical screw extending along the fifth metatarsal base. There is no definite acute fracture or malalignment identified. Sensitivity is decreased by overlying artif act. Surgical skin andrea are present along the lateral mid foot. CONCLUSION: 1. No definite acute fracture or malalignment. Visualization is suboptimal secondary to overlying art ifact. 2. Postsurgical changes involving the fifth metatarsal. Suhas Hopkins MD on February 09, 2017 at 14:25 Board Certified Radiologist. This report was verified electronically.
[2017-02-09] MEDS ORDERED: CELECOXIB 100 MG CAP PO SCH (21:00)
== END 2017-02-09 15:16 | disposition home or self-care (01) ==
LOC: PHED 00:27 → PHEDA 03:07 → PH3A 04:30
PROVIDERS: ADMIT Family Medicine; ATTEND Family Medicine
DX: S22.42XA Multiple fractures of ribs, left side, initial encounter for closed fracture (principal); W18.30XA Fall on same level, unspecified, initial encounter; D64.9 Anemia, unspecified; E78.00 Pure hypercholesterolemia, unspecified; K21.9 Gastro-esophageal reflux disease without esophagitis; Z79.899 Other long term (current) drug therapy; L40.50 Arthropathic psoriasis, unspecified; I10 Essential (primary) hypertension; J98.11 Atelectasis
CPT/HCPCS: 71020; 71101; 73630; 80048; 82948; 94150; 96372; 96374; 96375; 96376; 97110; 97161; 97530; 99285; G0378; G8987; G8988; J1644; J1885; J2270; J2405

== ENCOUNTER 2017-02-15 16:51 | Emergency (ER) | payer BC ==
[~2017-02-15] VITALS: Ht 160 cm; Wt 70.0 kg
[~2017-02-15 16:51] MED LIST changes: -DOXY1CAP74 PO; +HYDR-3133 PO; -OSEL75 PO; +OXYC15TA PO; -ZOFR4TAB3 SL
[2017-02-15 17:00] VITALS: BP 151/71; PULSE 78; RESP 16; TEMP 98.2; O2SAT 98
[2017-02-15] MEDS ORDERED: OXYC-395 PO (17:28)
--- NOTE | 2017-02-15 18:11 | RADRPT ---
EXAM DATE/TIME: 02/15/2017 17:55 [facility] COMPARISON: RIBS LEFT(W PA CXR MIN 3VWS), February 07, 2017, 1:49. INDICATIONS : Patient states she fractured multiple ribs on her left side last week and is now having increased germain rtness of breath. MEDICAL HISTORY : None. SURGICAL HISTORY : None. ENCOUNTER: Initial ACUITY: 2 days PAIN SCORE: 8/10 LOCATION: Bilateral chest FINDINGS: Multiple left lower lateral rib fractures are noted. There is a small left effusion, slightly increas ed from February 08. There is a small left apical pneumothorax. Right lung is relatively clear. CONCLUSION: 1. Multiple mildly displaced lower left lateral rib fractures. Small left effusion and small left api niko pneumothorax. Dwaine Adame MD on February 15, 2017 at 18:07 Board Certified Radiologist. This report was verified electronically.
--- NOTE | 2017-02-15 18:11 | PD ---
HPI . Dyspnea Chief Complaint: Respiratory Distress Time Seen by Provider: 17:30 Travel History International Travel<30 days: No Contact w/Intl Traveler<30days: No Traveled to known affect area: No History of Present Illness HPI This patient presents complaining with shortness of breath. Onset was yesterday. The patient reports a fall on 02/07 resulting in several left rib fractures. She was hospitalized in [place] for pain control. She was sexually discharged on 02/09 with a prescription for oxycodone 15 mg every 4 hours as needed for pain. She was also given an incentive spirometer. She states that she has a great deal of pain when she tries to use the incentive spirometer. The patient reports no sputum production. She has not been running any fever. PFSH Past Medical History Anemia: Yes (BORDERLINE) Cancer: No Cardiovascular Problems: Yes High Cholesterol: Yes Diminished Hearing: No Endocrine: No Gastrointestinal Disorders: Yes (EGD AND COLONOSCOPY WITH POLYPECTOMY) GERD: Yes Genitourinary: No Herniated Disk: Yes (C5-C6, REPAIRED) Hypertension: Yes Immune Disorder: Yes (PSORIATIC ARTHRITIS) Insomnia: Yes Musculoskeletal: No Psychiatric: No Reproductive: No Respiratory: No Immunizations Current: Yes (WHOOPING COUGH: 2014) Migraines: Yes Pneumonia: Yes Menopausal: Yes : 2 Miscarriage: 1 : 1 Past Surgical History Genitourinary Surgery: Yes (URETHRA PLASTY ) Tonsillectomy: Yes Other Surgery: Yes (BILATERAL BREAST IMPLANTS AND SINUS SURGERY X2) Social History Alcohol Use: Yes ("GLASS OF WINE ONCE IN AWHILE") Tobacco Use: No (QUIT AGE 55) Substance Use: No Allergies-Medications (Allergen,Severity, Reaction): Coded Allergies: clarithromycin (Unverified Allergy, Severe, 02/15/17) codeine (Unverified Allergy, Severe, 02/15/17) cyclobenzaprine (Unverified Allergy, Severe, 02/15/17) povidone-iodine (Unverified Allergy, Severe, 02/15/17) ibuprofen (Verified Allergy, Intermediate, RASH, 02/15/17) latex (Verified Allergy, Intermediate, RASH, 02/15/17) amoxicillin (Verified Allergy, Unknown, TURNS TEETH BROWN, 02/15/17) clavulanic acid (Verified Allergy, Unknown, TURNS TEETH BROWN, 02/15/17) Uncoded Allergies: CIDEX (Allergy, Severe, 08/02/11) Reported Meds & Prescriptions Reported Meds & Active Scripts Active Reported Oxycodone (Oxycodone HCl) 10 Mg Tab 10 Mg PO Q4H PRN Hydroxyzine HCl 25 Mg Tab 25 Mg PO QID PRN Enbrel PF Inj (Etanercept) 50 mg/ml Syr 50 Mg SQ SUNDAY Magnesium Citrate 100 Mg Tab 250 Mg PO BID PRN Probiotic (Saccharomyces Boulardii) 250 Mg Cap 250 Mg PO BID Calcium 500 +D (Calcium Carbonate-Cholecalciferol) 500-400 Mg-Unit Tab 1 Tab PO DAILY Zyrtec (Cetirizine HCl) 10 Mg Tablet 1 Tab PO HS Singulair (Montelukast Sodium) 10 Mg Tab 10 Mg PO DAILY [Prolea] Unknown Dose SQ 2X YEAR Atorvastatin (Atorvastatin Calcium) 10 Mg Tab 10 Mg PO EVERY OTHER DAY Zantac (Ranitidine HCl) 150 Mg Tab 150 Mg PO BID Coreg (Carvedilol) 6.25 Mg Tab 6.25 Mg PO BID Losartan (Losartan Potassium) 100 Mg Tab 100 Mg PO DAILY Amlodipine (Amlodipine Besylate) 2.5 Mg Tab 2.5 Mg PO DAILY Review of Systems Except as stated in HPI: all other systems reviewed are Neg Cardiovascular: Positive: Chest Pain or Discomfort Respiratory: Positive: Shortness of Breath Physical Exam Narrative GENERAL: Awake and alert and in no acute distress. SKIN: warm/dry. HEAD: Normocephalic. EYES: Pupils equal and round. No scleral icterus. No injection or drainage. ENT: No nasal bleeding or discharge. Mucous membranes pink and moist. NECK: Trachea midline. Full range of motion without pain.. CARDIOVASCULAR: Regular rate and rhythm. RESPIRATORY: No accessory muscle use. Clear to auscultation. Breath sounds equal bilaterally. GASTROINTESTINAL: Abdomen soft. Nontender. Bowel sounds present. Nondistended. MUSCULOSKELETAL: No obvious deformities. NEUROLOGICAL: Awake and alert. No obvious cranial nerve deficits. Motor grossly within normal limits. Normal speech. PSYCHIATRIC: Appropriate mood and affect; insight and judgment normal. Data Data Last Documented VS Vital Signs Date Time Temp Pulse Resp B/P (MAP) Pulse Ox O2 Delivery O2 Flow Rate FiO2 02/15/17 18:24 98 Nasal Cannula 2.00 02/15/17 17:05 16 02/15/17 17:00 98.2 78 151/71 (97) Orders Orders Chest, Pa & Lat (02/15/17 17:30) Arterial Blood Gas (Abg) (02/15/17 ) Ed Discharge Order (02/15/17 18:51) Labs Laboratory Tests Test 02/15/17 18:12 Blood Gas Puncture Site RT BRACHIAL Blood Gas Patient Temperature 37.0 Blood Gas HCO3 25 mmol/L Blood Gas Base Excess 1.7 mmol/L Blood Gas Oxygen Saturation 95 % Arterial Blood pH 7.49 Arterial Blood Partial Pressure CO2 33 mmHg Arterial Blood Partial Pressure O2 78 mmHG Arterial Blood Oxygen Content 14.6 Vol % Arterial Blood Carboxyhemoglobin 1.0 % Arterial Blood Methemoglobin 0.5 % Blood Gas Hemoglobin 10.9 G/DL Oxygen Delivery Device RA [facility] Medical Decision Making Medical Screen Exam Complete: Yes Emergency Medical Condition: Yes Differential Diagnosis Differential diagnosis of chest trauma includes but is not limited to superficial abrasions/contusions, rib fracture, pneumothorax, hemothorax, pulmonary contusion, cardiac contusion, ruptured thoracic aorta Narrative Course This patient presents for the evaluation of shortness of breath and pain associated with rib fractures which were sustained on 02/07. Chest x-ray and blood gas are pending. CXR>>Multiple mildly displaced lower left lateral rib fractures. Small left effusion and small left apical pneumothorax. ABG Test 02/15/17 18:12 Arterial Blood Carboxyhemoglobin 1.0 % Arterial Blood Methemoglobin 0.5 % Arterial Blood Oxygen Content 14.6 Vol % Arterial Blood Partial Pressure CO2 33 mmHg L Arterial Blood Partial Pressure O2 78 mmHG Arterial Blood pH 7.49 H Blood Gas Base Excess 1.7 mmol/L Blood Gas HCO3 25 mmol/L Blood Gas Hemoglobin 10.9 G/DL L Blood Gas Oxygen Saturation 95 % Oxygen Delivery Device RA The patient reports that she does not need anything further for pain. Physician Communication Physician Communication Dr. Roach, trauma surgery, was consult. Admission is not necessary since it has been 9 days since her trauma. Diagnosis Primary Impression: Pneumothorax Qualified Codes: S27.0XXA - Traumatic pneumothorax, initial encounter Additional Impressions: Pleural effusion Multiple fractures of ribs, left side, sequela Disposition: 01 DISCHARGE HOME Condition: Stable Denise Bailon MD Feb 15, 2017 18:11
[2017-02-15 18:24] VITALS: O2SAT 98
[2017-02-15 18:29] LABS: BLOOD GAS BASE EXCESS 1.7 mmol/L (-2-2); BLOOD GAS HCO3 25 mmol/L (22-26); BLOOD GAS METHEMOGLOBIN 0.5 % (0-2); BLOOD GAS O2 HGB SATURATION 95 % (90-100); BLOOD GAS OXYGEN CONTENT 14.6 Vol % (12.0-20.0); BLOOD GAS PCO2 33 mmHg (38-42); BLOOD GAS PO2 78 mmHG (61-120); BLOOD GAS TOTAL HGB 10.9 G/DL (12.0-16.0); CRITICAL VALUE NO; DRAW SITE RT BRACHIAL; NUMBER OF ARTERIAL PUNCTURES 1; OXYGEN DEVICE RA; STAT YES; ULNAR PULSE Y
[2017-02-15 19:10] VITALS: BP 168/81
== END 2017-02-15 19:33 | disposition home or self-care (01) ==
LOC: NEPE 16:51
DX: J93.9 Pneumothorax, unspecified (principal); J90 Pleural effusion, not elsewhere classified; S22.42XD Multiple fractures of ribs, left side, subsequent encounter for fracture with routine healing; D64.9 Anemia, unspecified; I10 Essential (primary) hypertension; K21.9 Gastro-esophageal reflux disease without esophagitis; E78.00 Pure hypercholesterolemia, unspecified; G47.00 Insomnia, unspecified; W19.XXXD Unspecified fall, subsequent encounter
CPT/HCPCS: 36600; 71020; 82805; 99284